=== PATIENT | male | born 1950 | race Caucasian/White ===

== ENCOUNTER 2017-08-19 17:40 | Inpatient (IN) | payer BC, OTHER ==
[2017-08-19] MEDS ORDERED: NACL 0.9% 3 ML SYG IV (19:00)
[2017-08-19] MEDS ORDERED: DEXTROSE 50% 50 ML SYRINGE IV ×2 (20:15)
[2017-08-19] MEDS ORDERED: GLUCOSE GEL 15 GRAM TUBE PO ×2 (20:15)
[2017-08-19] MEDS ORDERED: GLUCAGON 1 MG INJ IM (20:15)
[2017-08-19] MEDS ORDERED: GLUCOSE GEL 15 GRAM TUBE BUCCAL (20:15)
[2017-08-19] MEDS: INSULIN ASPART [NOVOLOG] 3 ML PEN SC (21:00)
[2017-08-19] MEDS: HEPARIN 5,000 UNIT/0.5 ML VIAL SC (21:15)
[2017-08-20] MEDS: hydrALAzine 20 MG INJ IV ×2 (01:11→11:17)
[2017-08-20] MEDS: HEPARIN 5,000 UNIT/0.5 ML VIAL SC ×3 (06:32→21:51)
[2017-08-20] MEDS: INSULIN ASPART [NOVOLOG] 3 ML PEN SC ×4 (08:00→21:00)
[2017-08-20 08:59] LABS: ADD MAN DIFF? NO
[2017-08-20] MEDS: ABACAVIR/LAMIVUDINE TAB PO (09:00)
[2017-08-20] MEDS: AMLODIPINE 10 MG TAB PO (09:00)
[2017-08-20] MEDS ORDERED: ENOXAPARIN 40 MG/0.4 ML SYG SC (09:00)
[2017-08-20 09:06] LABS: WHITE BLOOD COUNT 4.7 10^3/ul (4.8-10.8)
[2017-08-20 09:06] LABS: BASOPHILS % 0.8 % (0.0-2.0); EOSINOPHILS # 0.2 10^3/ul (0.0-0.5); EOSINOPHILS % 3.8 % (0.0-7.0); HEMATOCRIT 36.7 % (42.0-52.0); HEMOGLOBIN 12.5 g/dl (14.0-18.0); LYMPHOCYTES # 1.3 10^3/ul (0.8-2.9); LYMPHOCYTES % 27.8 % (15.0-51.0); MEAN CORPUSCULAR HEMOGLOBIN 28.9 pg (29.0-33.0); MEAN CORPUSCULAR HGB CONC 34.1 g/dl (32.0-37.0); MEAN CORPUSCULAR VOLUME 84.8 fl (82.0-101.0); MEAN PLATELET VOLUME 10.9 fl (7.4-10.4); MONOCYTE # 0.4 10^3/ul (0.3-0.9); MONOCYTES % 9.3 % (0.0-11.0); NEUTROPHIL # 2.7 10^3/ul (1.6-7.5); NEUTROPHILS % 57.9 % (39.0-77.0); PLATELET COUNT 115 10^3/UL (140-415); POSITIVE DIFF @See below; RED BLOOD COUNT 4.33 10^6/ul (4.70-6.10); RED CELL DISTRIBUTION WIDTH 14.2 % (11.5-14.5)
[2017-08-20 09:24] LABS: ALANINE AMINOTRANSFERASE 19 IU/L (13-69); ALBUMIN 3.7 g/dl (3.3-4.9); ALBUMIN/GLOBULIN RATIO 1.19; ALKALINE PHOSPHATASE 52 IU/L (42-121); ANION GAP 21 (8-16); ASPARTATE AMINO TRANSFERASE 27 IU/L (15-46); BLOOD UREA NITROGEN 42 mg/dl (7-20); CALCIUM 10.4 mg/dl (8.4-10.2); CARBON DIOXIDE 22 mmol/L (21-31); CHLORIDE 100 mmol/L (97-110); CREATININE 10.85 mg/dl (0.61-1.24); GLUCOSE 112 mg/dl (70-220); POTASSIUM 4.7 mmol/L (3.5-5.1); SODIUM 138 mmol/L (135-144); TOTAL PROTEIN 6.8 g/dl (6.1-8.1)
[2017-08-20] MEDS: ASPIRIN (EC) 81 MG TAB PO (09:36)
[2017-08-20] MEDS: ARIPIPRAZOLE 5 MG TAB PO (09:36)
[2017-08-20] MEDS: QUETIAPINE 100 MG TAB PO (09:37)
[2017-08-20 19:36] LABS: HEPATITIS B SURFACE ANTIGEN NEGATIVE (NEGATIVE)
[2017-08-20 19:53] LABS: HEPATITIS B SURFACE ANTIBODY NEGATIVE (NEGATIVE)
[2017-08-21] MEDS: HEPARIN 5,000 UNIT/0.5 ML VIAL SC ×3 (06:27→22:03)
[2017-08-21] MEDS: INSULIN ASPART [NOVOLOG] 3 ML PEN SC ×4 (08:00→21:00)
[2017-08-21] MEDS: ARIPIPRAZOLE 5 MG TAB PO (08:48)
[2017-08-21] MEDS: AMLODIPINE 10 MG TAB PO (08:48)
[2017-08-21] MEDS: ASPIRIN (EC) 81 MG TAB PO (08:49)
[2017-08-21] MEDS: ABACAVIR/LAMIVUDINE TAB PO (08:49)
[2017-08-21] MEDS: QUETIAPINE 100 MG TAB PO (08:49)
[2017-08-22] MEDS: HEPARIN 5,000 UNIT/0.5 ML VIAL SC ×2 (05:57→14:38)
[2017-08-22] MEDS: INSULIN ASPART [NOVOLOG] 3 ML PEN SC ×2 (08:00→11:31)
[2017-08-22 08:15] LABS: ADD MAN DIFF? NO
[2017-08-22] MEDS: ABACAVIR/LAMIVUDINE TAB PO (08:15)
[2017-08-22] MEDS: QUETIAPINE 100 MG TAB PO (08:15)
[2017-08-22] MEDS: ASPIRIN (EC) 81 MG TAB PO (08:15)
[2017-08-22] MEDS: ARIPIPRAZOLE 5 MG TAB PO (08:15)
[2017-08-22 08:18] LABS: WHITE BLOOD COUNT 4.3 10^3/ul (4.8-10.8)
[2017-08-22 08:18] LABS: BASOPHILS % 0.5 % (0.0-2.0); EOSINOPHILS # 0.2 10^3/ul (0.0-0.5); EOSINOPHILS % 3.7 % (0.0-7.0); HEMATOCRIT 39.3 % (42.0-52.0); HEMOGLOBIN 13.5 g/dl (14.0-18.0); LYMPHOCYTES # 1.6 10^3/ul (0.8-2.9); LYMPHOCYTES % 38.1 % (15.0-51.0); MEAN CORPUSCULAR HEMOGLOBIN 28.8 pg (29.0-33.0); MEAN CORPUSCULAR HGB CONC 34.4 g/dl (32.0-37.0); MEAN PLATELET VOLUME 10.5 fl (7.4-10.4); MONOCYTE # 0.6 10^3/ul (0.3-0.9); MONOCYTES % 12.8 % (0.0-11.0); NEUTROPHIL # 1.9 10^3/ul (1.6-7.5); NEUTROPHILS % 44.7 % (39.0-77.0); PLATELET COUNT 117 10^3/UL (140-415); POSITIVE DIFF @See below; RED BLOOD COUNT 4.68 10^6/ul (4.70-6.10); RED CELL DISTRIBUTION WIDTH 14.6 % (11.5-14.5)
[2017-08-22] MEDS: AMLODIPINE 10 MG TAB PO (08:21)
[2017-08-22 08:44] LABS: CHOL/HDL RATIO 3.1 RATIO; HDL CHOLESTEROL 46 mg/dl (30-78); LDL CHOLESTEROL,CALCULATED 67 mg/dl; TRIGLYCERIDES 170 mg/dl (0-149)
[2017-08-22 08:44] LABS: CHOLESTEROL 147 mg/dl (100-200)
[2017-08-22 08:47] LABS: ANION GAP 23 (8-16); BLOOD UREA NITROGEN 40 mg/dl (7-20); CALCIUM 10.3 mg/dl (8.4-10.2); CARBON DIOXIDE 22 mmol/L (21-31); CHLORIDE 98 mmol/L (97-110); CREATININE 10.86 mg/dl (0.61-1.24); GLUCOSE 109 mg/dl (70-220); POTASSIUM 4.5 mmol/L (3.5-5.1); SODIUM 138 mmol/L (135-144)
[2017-08-22] MEDS ORDERED: ALBUMIN HUMAN 25% 50 ML IV (11:00)
[2017-08-22] MEDS: HEPARIN 1000 UNITS/ML 10 ML INJ CATHETER (13:00)
== END 2017-08-22 16:07 | disposition home or self-care (01) | DRG 91 ==
LOC: MS4 17:40
PROVIDERS: Internal Medicine
PROC: 5A1D70Z Performance of Urinary Filtration, Intermittent, Less than 6 Hours Per Day (ICD-10-PCS; principal; 2017-08-20)
PROC: 5A1D70Z Performance of Urinary Filtration, Intermittent, Less than 6 Hours Per Day (ICD-10-PCS; 2017-08-22)
DX: R25.3 Fasciculation (principal); N18.6 End stage renal disease; E11.22 Type 2 diabetes mellitus with diabetic chronic kidney disease; I12.0 Hypertensive chronic kidney disease with stage 5 chronic kidney disease or end stage renal disease; D63.1 Anemia in chronic kidney disease; E78.00 Pure hypercholesterolemia, unspecified; Z86.73 Personal history of transient ischemic attack (TIA), and cerebral infarction without residual deficits; Z99.2 Dependence on renal dialysis; Z87.891 Personal history of nicotine dependence
CPT/HCPCS: 70551; 80048; 80053; 80061; 82962; 83036; 83735; 84100; 85025; 86706; 87340; 90935

== ENCOUNTER 2018-02-27 09:14 | Day surgery (SDC) | payer MEDICARE, OTHER, BC ==
[~2018-02-27 09:14] MED LIST: CLINDAMYCIN 900 MG/50 ML D5W IVPB IVPB; LIDOCAINE 2% (SDV) 5 ML INJ; VANCOMYCIN 1 GM 250 ML IVPB
[2018-02-27 10:07] LABS: ADD MAN DIFF? NO
[2018-02-27 10:11] LABS: WHITE BLOOD COUNT 4.3 10^3/ul (4.8-10.8)
[2018-02-27 10:11] LABS: BASOPHILS % 0.7 % (0.0-2.0); EOSINOPHILS # 0.1 10^3/ul (0.0-0.5); HEMATOCRIT 40.5 % (42.0-52.0); HEMOGLOBIN 13.4 g/dl (14.0-18.0); LYMPHOCYTES # 1.5 10^3/ul (0.8-2.9); LYMPHOCYTES % 35.7 % (15.0-51.0); MEAN CORPUSCULAR HEMOGLOBIN 30.8 pg (29.0-33.0); MEAN CORPUSCULAR HGB CONC 33.1 g/dl (32.0-37.0); MEAN CORPUSCULAR VOLUME 93.1 fl (82.0-101.0); MEAN PLATELET VOLUME 10.9 fl (7.4-10.4); MONOCYTE # 0.5 10^3/ul (0.3-0.9); MONOCYTES % 10.7 % (0.0-11.0); NEUTROPHIL # 2.1 10^3/ul (1.6-7.5); NEUTROPHILS % 49.7 % (39.0-77.0); PLATELET COUNT 106 10^3/UL (140-415); RED BLOOD COUNT 4.35 10^6/ul (4.70-6.10); RED CELL DISTRIBUTION WIDTH 14.3 % (11.5-14.5)
[2018-02-27 10:29] LABS: INR 0.91; PROTIME 12.3 Sec (11.9-14.9)
[2018-02-27 10:32] LABS: ANION GAP 19 (8-16); BLOOD UREA NITROGEN 37 mg/dl (7-20); CALCIUM 10.4 mg/dl (8.4-10.2); CARBON DIOXIDE 26 mmol/L (21-31); CHLORIDE 97 mmol/L (97-110); GLUCOSE 167 mg/dl (70-220); POTASSIUM 4.4 mmol/L (3.5-5.1); SODIUM 138 mmol/L (135-144)
[2018-02-27] MEDS ORDERED: MIDAZOLAM 1 MG/ML 2 ML INJ (11:17)
[2018-02-27] MEDS ORDERED: NEOSTIGMINE 3 MG/3 ML SYRINGE (11:17)
[2018-02-27] MEDS ORDERED: FENTAnyl 50 MCG/ML VIAL (11:17)
[2018-02-27] MEDS ORDERED: GLYCOPYRROLATE 0.4 MG INJ (11:17)
[2018-02-27] MEDS ORDERED: PROPOFOL 20 ML (11:17)
[2018-02-27] MEDS ORDERED: ROCURONIUM 50 MG INJ (11:17)
[2018-02-27] MEDS ORDERED: LIDOCAINE 2% (SDV) 5 ML INJ (11:17)
[2018-02-27] MEDS ORDERED: DEXAMETHASONE 4 MG/ML 1 ML INJ (11:18)
[2018-02-27] MEDS ORDERED: ROPIVACAINE 0.5 % 30 ML VIAL (11:18)
[2018-02-27] MEDS ORDERED: ONDANSETRON 4 MG INJ (11:18)
[2018-02-27] MEDS ORDERED: GELATIN SIZE 100 SPONGE (11:47)
[2018-02-27] MEDS ORDERED: THROMBIN 5000 UNIT VIAL (11:47)
[2018-02-27] MEDS ORDERED: morphine (1 MG/ML) 10ML SYRINGE IV ×3 (12:30)
[2018-02-27] MEDS ORDERED: LABETALOL HCL 20MG INJ IV (12:30)
[2018-02-27] MEDS ORDERED: DIPHENHYDRAMINE 50 MG INJ IV (12:30)
[2018-02-27] MEDS ORDERED: OXYCODONE/ACETAMINOPHEN (5/325) TAB PO ×2 (12:30)
[2018-02-27] MEDS ORDERED: ATROPINE 1 MG/10 ML SYRINGE IV (12:30)
[2018-02-27] MEDS ORDERED: ONDANSETRON 4 MG INJ IV (12:30)
[2018-02-27] MEDS ORDERED: FENTAnyl 50 MCG/ML VIAL IV ×2 (12:30)
[2018-02-27] MEDS ORDERED: MIDAZOLAM 1 MG/ML 2 ML INJ IV (12:30)
[2018-02-27] MEDS ORDERED: MEPERIDINE 25 MG INJ IV (12:30)
[2018-02-27] MEDS ORDERED: EPHEDrine SULFATE 50 MG/5 ML SYG IV (12:30)
[2018-02-27] MEDS ORDERED: HYDROmorphONE 1 MG/5 ML IV SYRINGE IV ×3 (12:30)
[2018-02-27] MEDS ORDERED: hydrALAzine 20 MG INJ IV (12:30)
[2018-02-27] MEDS: LIDOCAINE 1% (MPF) 30 ML INJ (13:15)
[2018-02-27] MEDS: BUPIVACAINE 0.5% (SDV) 30 ML INJ (13:16)
[2018-02-27] MEDS: HEPARIN 1000 UNITS/ML 10 ML INJ (13:17)
[2018-02-27] MEDS: DESMOPRESSIN 20 MCG in NS 50 ML IV (14:00)
== END 2018-02-27 16:07 | disposition home or self-care (01) ==
LOC: SDS 09:14
DX: I12.0 Hypertensive chronic kidney disease with stage 5 chronic kidney disease or end stage renal disease (principal); N18.6 End stage renal disease; I25.10 Atherosclerotic heart disease of native coronary artery without angina pectoris; E11.9 Type 2 diabetes mellitus without complications; I25.2 Old myocardial infarction; F17.200 Nicotine dependence, unspecified, uncomplicated
CPT/HCPCS: 36819; 71045; 80048; 82962; 85025; 85610; 85730; 93005